=== PATIENT | male | born 1995 | race Caucasian/White ===

== ENCOUNTER 2020-06-29 16:15 | Inpatient (IN) ==
[2020-06-29 16:53] LABS: Appearance Urine Clear (Clear); Bilirubin Urine Negative (Negative); Blood Urine Negative (Negative); Color Urine Yellow; Glucose Urine UA Negative (Negative); Ketones Urine Negative (Negative); Leukocyte Esterase Urine Negative (Negative); Nitrite Urine Negative (Negative); Protein Urine Negative (Negative); Specific Gravity Urine 1.011 (1.000-1.030); Urobilinogen Urine Negative (Negative)
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
[2020-06-29 17:13] LABS: Amphetamines+Metham, Urine Neg (Neg); Barbiturates, Urine Neg (Neg); Benzodiazepine, Urine Neg (Neg); Cocaine, Urine Neg (Neg); MDMA (Ecstacy), Urine Neg (Neg); Methadone, Urine Neg (Neg); Opiate, Urine Neg (Neg); Phencyclidine, Urine Neg (Neg)
[2020-06-29 17:26] LABS: Basophils # (auto) 0.11 K/uL (0-0.2); Eosinophils # (auto) 0.36 K/uL (0-0.5); Eosinophils % (auto) 3.4 %; Hematocrit (blood only) 45.9 % (42-52); Hemoglobin 15.9 g/dL (14.0-18.0); Immature Granulocytes # (auto) 0.05 K/uL (0.00-0.02); Immature Granulocytes % (auto) 0.5 %; Lymphocytes # (auto) 3.66 K/uL (1.2-3.4); Lymphocytes % (auto) 34.1 %; Mean Corpuscular Hemoglobin 30.8 pg (25-34); Mean Corpuscular Hgb Conc 34.6 g/dL (32-36); Mean Corpuscular Volume 88.8 fL (80-100); Mean Platelet Volume 9.7 fL (7.4-10.4); Monocytes % (auto) 7.5 %; Neutrophils # (auto) 5.75 K/uL (1.4-6.5); Neutrophils % (auto) 53.5 %; Platelet Count 260 K/uL (130-400); RDW Coefficient of Variation 12.4 % (11.5-14.5); RDW Standard Deviation 40.1 fL (36.4-46.3); Red Blood Count 5.17 M/uL (4.7-6.1); White Blood Count 10.73 K/uL (4.8-10.8)
[2020-06-29 17:49] LABS: BUN Creatinine Ratio 14.3 (10-20); Calcium 8.8 mg/dl (8.5-10.1); Creatinine Clr Calc Pharmacy 123.3 ml/min; Est GFR (African American) 126.6; Est GFR (Non-African American) 109.3; Potassium 4.2 mmol/L (3.5-5.1)
[2020-06-29 18:00] LABS: Albumin Globulin Ratio 1.3 (0.9-2); Bilirubin,Total 0.4 mg/dl (0.2-1); Globulin 3.1 gm/dl (2.5-4.0); Thyroid Stimulating Hormone 0.858 uIu/ml (0.300-4.500); Total Protein 7.1 gm/dl (6.4-8.2)
[2020-06-29 18:08] LABS: Acetaminophen < 2 ug/ml (10-30); Salicylate 2.9 mg/dl (2.8-20)
[2020-06-29] MEDS ORDERED: MAGNESIUM HYDROXIDE SUSP 30 ML UDC PO PRN ×2 (22:01→22:48)
[2020-06-29] MEDS ORDERED: ACETAMINOPHEN 325 MG TAB PO PRN ×2 (22:01→22:48)
[2020-06-29] MEDS ORDERED: SODIUM CHLORIDE 0.65% NA SOLN 45 ML (OCEAN) PRN ×2 (22:01→22:48)
[2020-06-29] MEDS ORDERED: BISMUTH SUBSALICYLATE PER ML OMNICELL CHARGE PO PRN ×2 (22:01→22:48)
[2020-06-29] MEDS ORDERED: ALUMINUM/MAGNESIUM SUSP 30 ML UDC PO PRN ×2 (22:01→22:48)
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
[2020-06-30] MEDS ORDERED: LURASIDONE HCL 40 MG TAB PO SCH (17:00)
[2020-07-01 09:26] LABS: Glucose Fasting 95 mg/dl (70-99)
[2020-07-01 09:33] LABS: Chol HDL Ratio 6; Cholesterol 199 mg/dl (0-200); HDL Cholesterol 35 mg/dl; LDL Cholesterol Calculated 137 mg/dl; Triglycerides 135 mg/dl (0-150); VLDL Cholesterol 27 mg/dl
--- NOTE | 2020-07-01 11:17 | Psychiatric Progress Note ---
Date of Service July 01, 2020 Impression / Recommendations Impression 25-year-old single male from [place] who lives with his parents, has a history of bipolar type I, alcohol and methamphetamine abuse, and a recent highly lethality suicide attempt by aspirin overdose who was hospitalized at [facility] and discharged without follow-up per his report, and presents here seeking inpatient treatment for worsening mood, suicidal thoughts, and auditory hallucinations including command hallucinations to end his life. He has been able to maintain sobriety for 2 weeks since discharge from the hospital, but has no outpatient services and little support. He is at high risk for suicide if discharged prematurely, and inpatient treatment is medically necessary for his safety. (1) Bipolar 1 disorder: 06/30 -patient reports a long history of bipolar disorder type I, with good response to lurasidone, which was just resumed 2 weeks ago at [facility]. He is tolerating it well, and we will increase it to 60 mg daily with dinner. He does not believe he had fasting labs done at [facility], so will order them for tomorrow for monitoring on an atypical antipsychotic. -Request records from [facility] regarding his recent hospitalization, and attempt to clarify who he was supposed to follow-up with. It sounds as if he may have been referred to their IOP program, but will also need outpatient treatment with a psychiatrist and therapist in the interim. Additionally, he states he has a blended returned case inspector through his [facility]'s ID office, but does not even know who that individual is. -Family meeting with parents/discharge planning. -Encourage group attendance and participation, work on healthy coping skills and discharge safety plan. 07/01 - Continue current medication regimen - though patient does request to move lurasidone dosing to later in the evening due to fatigue. Pt reminded that medication is best absorbed with a snack of at least 350 calories, and felt this was feasible - Continue to explore options for outpatient treatment - Pt is requesting a family meeting with a close friend, Giulia, which was scheduled for tomorrow morning. We encouraged a family meeting with parents, since patient will be returning to live with them. Pt states he has had very productive independent conversations with his parents, and declines a formal meeting. He was at least agreeable with allowing our staff to contact parents to discuss safety recommendations and discuss mitigation of risks related to patient being discharged to their house. - Pt has been participating appropriately with groups (2) Alcohol abuse: 06/30 - Brief intervention was offered and accepted Intervention was greater than 5 min in length. Brief interventions include: 1. Assess Readiness to Quit, 2. Advise: Help Patient to Reduce or Abstain from Alcohol, 3. Agree: Set Specific, Feasible Goals, 4. Assist: Anticipate barriers, Problem-Solving Solutions. Social work to 5. Arrange: Referrals to appropriate treatment. Summary of intervention: The patient is in contemplation stage with regards to transtheoretical model of change. The patient is advised to decrease alcohol consumption due to depressant effects and risk of interactions with prescription medications. The patient agreed to continue to work on sobriety and start going to AA with his friend, Giulia, and will be provided with recovery materials to continue to education self on how to cope with their condition without drinking. -Avoid prescription of controlled substances. History of abusing stimulants. -Recovery protocol. -Refer for outpatient dual diagnosis treatment. 07/01 - Pt started on recovery protocol and has been working through workbook - Pt states he discussed his history substance abuse with a close friend, who is planning to accompany him to AA meetings. 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 Avoid prescription of controlled substances, and encourage substance abuse treatment as above. Risk Factors Assessment Male: Yes : Yes Do You Have Access To A Gun?: No Health Problems: No Mental Health Diagnoses: Yes Substance Use Disorders: Yes Previous Attempt: Yes Previous Attempt; Highly Lethal: Yes Previous Psychiatric Hospitalization: Yes Hopelessness: Yes Smoker: Yes Protective Factors Assessment : No Responsible for Young Children: No Employed: Yes ([employer]) Supportive Family: Yes Good Rapport with Provider: No Interval History Identifying Information KEELEY WILLIAM is a 25-year-old M who currently lives in [place], reports a history of depression versus bipolar disorder and stimulant and alcohol abuse, and was admitted on 06/29/20 22:01 on a 201 voluntary commitment for depressive and psychotic symptoms with a serious suicide attempt by aspirin overdose a couple of weeks ago. Chief Complaint "Um, I'm doing better I think. I'm having a meeting with Giulia tomorrow." Review of Systems Notes Constitutional: denied Cardiovascular: denied Respiratory: denied Gastrointestinal: denied Neurological: denied Psychiatric: denies symptoms other than stated above Total of at least 10 systems reviewed, pertinent positives as above and in HPI. Sleep Information Total Hours of Sleep: 10.0 Sleep Comments: Patient on q15 minute checks Meal Information Percent Meal Consumed - Breakfast: 100 Percent Meal Consumed - Lunch: 100 Percent Meal Consumed - Dinner: 100 Subjective Subjective Patient was seen & assessed and interval progress reviewed with nursing and social work. Staff report the patient has been participating appropriately in group programming. He slept well last evening, and has been completing the re covery protocol workbook in between group sessions. Pt has requested a family meeting with his friend Giulia, which was scheduled for tomorrow morning. Pt was seen today to assess progress since admission. Pt states he is "doing better I think." He states that he was able to speak to his friend as well as his parents yesterday and is planning to have a support meeting with his friend. Reasons for recommended meeting with parents were reviewed - as this would allow opportunity to discuss necessary support related to patient returning to their home on discharge. Pt verbalized understanding of recommendation, but reports "my parents and I talked a lot of stuff out last night. I opened up a lot and it was really good." Pt was at least agreeable with allowing staff to call parents to ensure there are no safety concerns and to review discharge recommendations. Pt shared with this provider that he woke up this morning feeling more hopeful and feels he is ready to begin processing some of the guilt related to the of his childhood friend 10 years ago. Pt states "we were super close, he was like my little brother - and I couldn't protect him." Pt states that he feels like he is "still failing" this friend by "not being able to protect our other friend, who is struggling a lot with alcohol." Pt is able to verbalize that his goal needs to be to focus on himself, and he has been processing ways to do this. Pt states "I realized I need to find a new purpose. I need outpatient treatment and I would really like to find a job in a gym. That's where I feel the happiest." Pt states that his meeting tomorrow will be with a close friend, who has already reported she will attend regular AA meetings with the patient and offer support. Pt is also proud to announce that he has secured an AA sponsor. Pt denied ongoing SI or auditory hallucinations today. He denied additional needs or concerns at this time. Physical Exam Psychiatric Orientation: alert, oriented x 3 and cooperative Apperance: appropriately dressed (casually, in jeans and a t-shirt), appr opriately groomed and appeared stated age Eye Contact: good eye contact Motor Behavior: steady gait and station and no abnormal motor movements Speech: normal rate/rhythm/volume of speech Affect: + blunted affect (appearing somewhat subdued, but not overtly depressed) Mood: + depressed mood (but admits to overall improvement since admission) Thought Process: goal directed thought process, clear/coherent thought process and thought association intact Thought Content: reality based without delusions and + guilt (admits to still processing guilt related to of childhood friend); no hopelessness Suicidal Thoughts: denies suicidal thoughts and denies suicidal intent Homicidal Thoughts: denies homicidal thoughts Hallucinations: no auditory hallucinations and no visual hallucinations Cognition: recent memory grossly intact, attention grossly intact and language grossly intact Estimated Intelligence: consistent with education level Insight: + fair insight Judgement: + fair judgement Vital Signs (Past 24 Hours) Last Vital Signs Temp 36.5 C 07/01/20 06:52 Pulse 64 07/01/20 06:53 Resp 18 07/01/20 06:52 BP 144/80 H 07/01/20 06:53 Pulse Ox 97 06/29/20 22:26 Results & Data ([facility]) Laboratory Results Laboratory Results - last 24 hr 07/01/20 07:46 Fasting Glucose 95 Triglycerides 135 Cholesterol 199 LDL Cholesterol, Calc 137 VLDL Cholesterol, Calc 27 HDL Cholesterol 35 Cholesterol/HDL Ratio 6 Current Inpatient Medications Current Inpatient Medications: Current Inpatient Medications Acetaminophen (Acetaminophen 325 Mg Tab) 650 mg PO Q4H PRN PRN Reason: Headache or Minor Fever Stop: 07/29/20 22:00 Al Hydrox/Mg Hydrox/Simethicone (Aluminum/Magnesium Susp 30 Ml Udc) 30 ml PO Q4H PRN PRN Reason: GI Upset Stop: 07/29/20 22:00 Bismuth Subsalicylate (Bismuth Subsalicylate Per Ml Omnicell Charge) 15 ml PO PRN PRN PRN Reason: Loose Stool Stop: 07/29/20 22:00 Hydroxyzine HCl (Hydroxyzine Hcl 25 Mg Tab) 50 mg PO HSZ PRN PRN Reason: Insomnia Stop: 07/29/20 22:00 Hydroxyzine HCl (Hydroxyzine Hcl 25 Mg Tab) 25 mg PO Q4H PRN PRN Reason: Anxiety Stop: 07/29/20 22:00 Lurasidone HCl (Lurasidone Hcl 40 Mg Tab) 60 mg PO DAILY@1930 MARIBEL Stop: 07/31/20 19:29 Magnesium Hydroxide (Magnesium Hydroxide Susp 30 Ml Udc) 30 ml PO DAILY PRN PRN Reason: Constipation Stop: 07/29/20 22:00 Nicotine Polacrilex (Nicotine Polacrilex 2 Mg Gum) 1 piece MT Q1H PRN PRN Reason: nicotine cravings Stop: 07/31/20 10:17 Sodium Chloride (Sodium Chloride 0.65% Na Soln 45 Ml ([place])) 1 - 2 sprays NA PRN PRN PRN Reason: Nasal Dryness/Congestion Stop: 07/29/20 22:00 Mental Health & Subst Abuse Tx Therapist Name of Therapist: None Transportation Driver Name of Transportation Driver: [facility] IRENE Dinh Phone Number for Transportation Driver: Post Discharge Appointments Other #1: Name of Aftercare Appointment: Alfonso ADAM Phone Number of Aftercare Appointment: [phone] Time of Aftercare Appointment: On waitlist - approximately 1 month wait Aftercare Appointment Comment: Will call you to schedule intake Contact Information Discharge Discharge Address: [address] [place] [address]
[2020-07-01] MEDS: NICOTINE POLACRILEX 2 MG GUM MT PRN ×2 (11:24→14:39)
[2020-07-01] MEDS ORDERED: LURASIDONE HCL 40 MG TAB PO SCH (19:30)
--- NOTE | 2020-07-02 11:28 | Psychiatric Progress Note ---
Date of Service July 02, 2020 Impression / Recommendations Impression 25-year-old single male from [place] who lives with his parents, has a history of bipolar type I, alcohol and methamphetamine abuse, and a recent highly lethality suicide attempt by aspirin overdose who was hospitalized at [facility] and discharged without follow-up per his report, and presents here seeking inpatient treatment for worsening mood, suicidal thoughts, and auditory hallucinations including command hallucinations to end his life. He has been able to maintain sobriety for 2 weeks since discharge from the hospital, but has no outpatient services and little support. He is at high risk for suicide if discharged prematurely, and inpatient treatment is medically necessary for his safety. (1) Bipolar 1 disorder: 06/30 -patient reports a long history of bipolar disorder type I, with good response to lurasidone, which was just resumed 2 weeks ago at [facility]. He is tolerating it well, and we will increase it to 60 mg daily with dinner. He does not believe he had fasting labs done at [facility], so will order them for tomorrow for monitoring on an atypical antipsychotic. -Request records from [facility] regarding his recent hospitalization, and attempt to clarify who he was supposed to follow-up with. It sounds as if he may have been referred to their IOP program, but will also need outpatient treatment with a psychiatrist and therapist in the interim. Additionally, he states he has a blended pillowcase maker [facility], but does not even know who that individual is. -Family meeting with parents/discharge planning. -Encourage group attendance and participation, work on healthy coping skills and discharge safety plan. 07/01 - Continue current medication regimen - though patient does request to move lurasidone dosing to later in the evening due to fatigue. Pt reminded that medication is best absorbed with a snack of at least 350 calories, and felt this was feasible - Continue to explore options for outpatient treatment - Pt is requesting a family meeting with a close friend, Giulia, which was scheduled for tomorrow morning. We encouraged a family meeting with parents, since patient will be returning to live with them. Pt states he has had very productive independent conversations with his parents, and declines a formal meeting. He was at least agreeable with allowing our staff to contact parents to discuss safety recommendations and discuss mitigation of risks related to patient being discharged to their house. - Pt has been participating appropriately with groups (2) Alcohol abuse: 06/30 - Brief intervention was offered and accepted Intervention was greater than 5 min in length. Brief interventions include: 1. Assess Readiness to Quit, 2. Advise: Help Patient to Reduce or Abstain from Alcohol, 3. Agree: Set Specific, Feasible Goals, 4. Assist: Anticipate barriers, Problem-Solving Solutions. Social work to 5. Arrange: Referrals to appropriate treatment. Summary of intervention: The patient is in contemplation stage with regards to transtheoretical model of change. The patient is advised to decrease alcohol consumption due to depressant effects and risk of interactions with prescription medications. The patient agreed to continue to work on sobriety and start going to AA with his friend, Giulia, and will be provided with recovery materials to continue to education self on how to cope with their condition without drinking. -Avoid prescription of controlled substances. History of abusing stimulants. -Recovery protocol. -Refer for outpatient dual diagnosis treatment. 07/01 - Pt started on recovery protocol and has been working through workbook - Pt states he discussed his history substance abuse with a close friend, who is planning to accompany him to AA meetings. 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 Avoid prescription of controlled substances, and encourage substance abuse treatment as above. Risk Factors Assessment Male: Yes : Yes Do You Have Access To A Gun?: No Health Problems: No Mental Health Diagnoses: Yes Substance Use Disorders: Yes Previous Attempt: Yes Previous Attempt; Highly Lethal: Yes Previous Psychiatric Hospitalization: Yes Hopelessness: Yes Smoker: Yes Protective Factors Assessment : No Responsible for Young Children: No Employed: Yes ([employer]) Supportive Family: Yes Good Rapport with Provider: No Interval History Identifying Information KEELEY WILLIAM is a 25-year-old M who currently lives in [place], reports a history of depression versus bipolar disorder and stimulant and alcohol abuse, and was admitted on 06/29/20 22:01 on a 201 voluntary commitment for depressive and psychotic symptoms with a serious suicide attempt by aspirin overdose a couple of weeks ago. Chief Complaint "Depression -- and making bad decisions". Review of Systems Sleep Information Total Hours of Sleep: 7 Sleep Comments: pt on q-15 minute checks Meal Information Percent Meal Consumed - Breakfast: 100 Percent Meal Consumed - Lunch: 100 Percent Meal Consumed - Dinner: 100 Subjective Subjective Patient was seen & assessed and interval progress reviewed with treatment team. I met individually with the patient in order to assess his current mental status, evaluate his response to treatment, make any necessary changes in the patient's treatment regimen and coordination with the patient, and address any issues or questions that may arise. The patient tells me that he is continuing to feel better, and notes that he believes that the increase in his dose of Latuda from 40 mg a day to 60 mg a day has been helpful. He also notes that he has been working on a number of issues in individual, and group and activity therapies. These issues primarily have to do with his ongoing feelings regarding various losses that she is experienced, and what he has learned is his tendency to imagine that he somehow has the power to save other people from their own poorly conceived decisions. We reviewed the circumstances that led to the admission. The patient reports that 2 weeks ago he took what he refers to as a "massive" overdose of aspirin. He indicates that they aspirin tablets were 325 mg tablets and that he took roughly 30,000 mg by swallowing a handful after handful with water. He then became frightened, called for help, was taken to [facility], stabilized medically, psychiatrically hospitalized for several days, and then discharged back to the community. At discharge, he was told that he would be receiving a call from the community mental health social worker at the [facility] intensive up patient treatment program, and he was discharged with a supply of Latuda, but then was not contacted by [facility] outpatient treatment. He was aware that his ongoing depression continued. He also acknowledges that complicating the clinical picture is a history of alcohol dependence, and he identifies himself as a "recovering alcoholic," although his current duration of sobriety is approximately 2 weeks. He says that when he is drinking he typically drinks "3 or 4 fifths [of distilled spirits] over the course of a week, and there have been times when drinking with a friend he has consumed an entire fifth of distilled spirits and a single setting. The patient also tells me that he sometimes uses "marijuana" recreationally." The record indicates that he has a history of methamphetamine, but the patient did not acknowledge that with me today. Physical Exam Vital Signs (Past 24 Hours) Last Vital Signs Temp 36.8 C 07/02/20 06:33 Pulse 54 L 07/02/20 06:34 Resp 18 07/02/20 06:33 BP 111/71 07/02/20 06:34 Pulse Ox 97 06/29/20 22:26 Results & Data ([facility]) Current Inpatient Medications Current Inpatient Medications: Current Inpatient Medications Acetaminophen (Acetaminophen 325 Mg Tab) 650 mg PO Q4H PRN PRN Reason: Headache or Minor Fever Stop: 07/29/20 22:00 Al Hydrox/Mg Hydrox/Simethicone (Aluminum/Magnesium Susp 30 Ml Udc) 30 ml PO Q4H PRN PRN Reason: GI Upset Stop: 07/29/20 22:00 Bismuth Subsalicylate (Bismuth Subsalicylate Per Ml Omnicell Charge) 15 ml PO PRN PRN PRN Reason: Loose Stool Stop: 07/29/20 22:00 Hydroxyzine HCl (Hydroxyzine Hcl 25 Mg Tab) 50 mg PO HSZ PRN PRN Reason: Insomnia Stop: 07/29/20 22:00 Hydroxyzine HCl (Hydroxyzine Hcl 25 Mg Tab) 25 mg PO Q4H PRN PRN Reason: Anxiety Stop: 07/29/20 22:00 Lurasidone HCl (Lurasidone Hcl 40 Mg Tab) 60 mg PO DAILY@1930 MARIBEL Stop: 07/31/20 19:29 Last Admin: 07/01/20 19:28 Dose: 60 mg Documented by: Magnesium Hydroxide (Magnesium Hydroxide Susp 30 Ml Udc) 30 ml PO DAILY PRN PRN Reason: Constipation Stop: 07/29/20 22:00 Nicotine Polacrilex (Nicotine Polacrilex 2 Mg Gum) 1 piece MT Q1H PRN PRN Reason: nicotine cravings Stop: 07/31/20 10:17 Last Admin: 07/01/20 14:39 Dose: 1 piece Documented by: Sodium Chloride (Sodium Chloride 0.65% Na Soln 45 Ml ([place])) 1 - 2 sprays NA PRN PRN PRN Reason: Nasal Dryness/Congestion Stop: 07/29/20 22:00 Mental Health & Subst Abuse Tx Psychiatrist [facility] Psychiatrist's Psychiatric Appointment Comment: [address] [place] [address] Therapist Name of Therapist: SHELIA ADAM Therapist's Therapy Appointment Comment: [address] [place] [facility] [place] [address] Box Sealing Machine Catcher Name of Box Sealing Machine Catcher: [facility] IRENE Dinh Phone Number for Box Sealing Machine Catcher: Date of Appointment with Box Sealing Machine Catcher: 06/30/20 Time of Appointment with Box Sealing Machine Catcher: 12:30 p.m. Case Management Appointment Comment: Will meet you at your house (outside) Post Discharge Appointments Contact Information Discharge Discharge Address: [address] [place] [address]
--- NOTE | 2020-07-02 13:02 | Discharge Summary ---
Date of Service July 02, 2020 History of Present Illness Patient presented to our emergency room yesterday, after he presented at [facility] for inpatient treatment, and they sent him to our ER as they had no beds. He reported depressed mood with suicidal thoughts, and said he attempted to end his life on 06/13/2020 by overdosing on 74,000 mg of aspirin. He was in the ICU at [facility] in [place], and then transferred to their inpatient psychiatric unit for 4 days, and said he was discharged on Latuda but without outpatient follow-up. He endorsed auditory hallucinations of voices (a crowd of people talking, calling his name, and a voice telling him to "do it," referring to killing himself). He denied legal problems, homicidal thoughts, aggression, and self-injurious behavior. He said he was having difficulty focusing at work, and reports a history of stimulant and alcohol abuse but had been sober for 16 days. He was unable to contract for safety outside of the hospital, stating that if he went home, he feared he would drink alcohol and then end his life. He reports urges to drink, stating that a few days ago he got out a fifth of vodka, but stopped himself before he took a drink. Admission labs: CBC, CMP, TSH, and UA all normal. UDS negative. He signed in voluntarily for treatment. On my assessment today, he reports he is struggled with mood symptoms since age 12. He had done well on Latuda for a time, but has not been stable for about a year, had been drinking daily up until 2 weeks ago, and mood was worsening in the context of multiple stressors. He reports that the area he lives in is drug and gang ridden, with frequent shootings, and that he has multiple friends using "hard drugs," and has "pulled guns out of friends' mouth multiple times." He was in an off-and-on relationship with a female but found out at the end of May that she was cheating on him. He overdosed impulsively to end his life, and although he says he regrets the overdose and it was "selfish," he is fearful that he would again try to harm himself as he feels unstable, hopeless, and ov erwhelmed. He has urges to drink, and does not feel able to maintain sobriety with his current mood symptoms. He feels unable to function or work due to low mood, irritability, hopelessness, and poor focus. He reports a history of episodes where he does not sleep for up to 4 days, feels hyper, distractible, and irritable, "then I crash and get very depressed." He describes his mood is "useless, feel like I'm a disappointment, not good enough for anything." He reports increased anxiety over the past few weeks, as a result of worsening mood. He reports auditory hallucinations of voices that have occurred over the past few weeks, and has never experienced these or other psychotic symptoms before. He says Latuda has been helpful in the past, "I feel more like me." He has been on higher doses in the past, but it was just restarted at [facility] as he had not been taking it while drinking heavily. His goals of treatment are to adjust his medication, get outpatient treatment, and work on coping skills. He states that [facility] discharged him without any follow-up, and that he was supposed to be contacted about a program (?IOP), but has never heard from them. Physical Exam Psychiatric Orientation: alert, oriented x 3 and cooperative Apperance: appropriately dressed, appropriately groomed and appeared stated age Eye Contact: good eye contact Motor Behavior: steady gait and station Speech: normal rate/rhythm/volume of speech Affect: euthymic affect "Much better." Thought Process: goal directed thought process and linear/logical thought process Thought Content: reality based without delusions Suicidal Thoughts: denies suicidal thoughts and denies suicidal plan Homicidal Thoughts: denies homicidal thoughts and denies homicidal plan Hallucinations: no auditory hallucinations and no visual hallucinations Cognition: recent memory grossly intact, remote memory grossly intact, attention grossly intact and language grossly intact Estimated Intelligence: + above average estimated intelligence Insight: + fair insight Judgement: good judgement Vital Signs (Past 24 Hours) Last Vital Signs Temp 36.8 C 07/02/20 06:33 Pulse 54 L 07/02/20 06:34 Resp 18 07/02/20 06:33 BP 111/71 07/02/20 06:34 Pulse Ox 97 06/29/20 22:26 Principal Diagnosis Bipolar Disorder Psychiatric Data During the course of hospitalization the patient was offered various modalities of psychiatric treatment and education. These included individual, group, recreational, and family interventions. He also was provided with psychiatric chemotherapy. Specifically, his dose of Latuda was titrated to 40 mg a day, the patient reported that his response was favorable. As part of his discharge assessment the patient reconfirmed that he is continuing to feel "a lot better," and notes that he believes that the increase in his dose of Latuda from 40 mg a day to 60 mg a day has been helpful. He also notes that he has been working on a number of issues in individual, and group and activity therapies. These issues primarily have to do with his ongoing feelings regarding various losses that she is experienced, and what he has learned is his tendency to imagine that he somehow has the power to save other people from their own poorly conceived decisions. We reviewed the circumstances that led to the admission. The patient reports that 2 weeks ago he took what he refers to as a "massive" overdose of aspirin. He indicates that they aspirin tablets were 325 mg tablets and that he took roughly 30,000 mg by swallowing a handful after handful with water. He then became frightened, called for help, was taken to [facility], stabilized medically, psychiatrically hospitalized for several days, and then discharged back to the community. At discharge, he was told that he would be receiving a call from the material worker at the [facility] intensive up patient treatment program, and he was discharged with a supply of Latuda, but then was not contacted by [facility] outpatient treatment. He was aware that his ongoing depression continued. He also acknowledges that complicating the clinical picture is a history of alcohol dependence, and he identifies himself as a "recovering alcoholic," although his current duration of sobriety is approximately 2 weeks. He says that when he is drinking he typically drinks "3 or 4 fifths [of distilled spirits] over the course of a week, and there have been times when drinking with a friend he has consumed an entire fifth of distilled spirits and a single setting. The patient also tells me that he sometimes uses "marijuana" recreationally." Patient was advised against using nonprescribed drugs, including drugs of abuse and alcohol, while undergoing treatment for a mood disorder. Day of Discharge Assessment At the time of his discharge assessment on the day of discharge the patient was found to be pleasant, cooperative, and appropriately dressed and groomed. His speech was delivered at a normal rate, rhythm, and volume. In addition, he spoke spontaneously and fluently. The patient's thought processes demonstrated tight associations. His thought content was devoid of any psychotic features. Specifically, there is no evidence of delusional material in the patient's thought content. In addition, he reports that he has not experienced any perceptual disturbances such as auditory or visual hallucinations. Patient reports that he is not experiencing any thoughts of suicide, and indicates that admission he did not have an actual plan for suicide, nor did he have suicidal intent. However, he was aware that his mood alterations were persisting and he sought treatment because he was concerned by the persistent depression, within the context of a suicide attempt approximately 2 weeks ago. Within this context, the patient is conversant with a plan for safety in the community. We have made arrangements for him to enter an intensive outpatient treatment program, and the patient notes that attending his treatment faithfully and consistently as part of his safety plan. He also plans to return to alcoholics anonymous and is looking for a sponsor. He agreed that, at least at first (at least for the first 2 months,, he should attend AA meetings daily. He also plans to avoid spending time with friends who he knows will not be sober supports. He will advise his family or his outpatient providers if suicidal thoughts return and he says that he is aware that he can also come independently to the local emergency room. The patient reports that he has no thoughts of causing physical harm to the person or property of others. Currently, his judgment seems to be good. His insight is fair. Transition of Care Transition Of Care Record: was reviewed with the patient Advance Directives Advance Directives Information Provided: Yes Advance Directives: No Mental Health Advance Directive: No Advance Directives on File: No Living Will: No Power of Asphalt Tamper: No Advance Directives Reason:: Declines as Mental Health Visit. Risk Factors Assessment History of suicide attempt. History of mental illness. History of drug/alcohol abuse. Mitigating factors include supportive family and motivation to treatment and recovery. Male: Yes : Yes Do You Have Access To A Gun?: No Health Problems: No Mental Health Diagnoses: Yes Substance Use Disorders: Yes Previous Attempt: Yes Previous Attempt; Highly Lethal: Yes Previous Attempt; Planned: Yes Previous Attempt; Didn't Tell Anyone: No Family History of Suicide: No Previous Psychiatric Hospitalization: Yes Hopelessness: Yes Smoker: Yes Protective Factors Assessment Jehovah'S Witness Beliefs: Yes : No Responsible for Young Children: No Employed: Yes ([employer]) Stable Relationships: Yes Supportive Family: Yes Good Rapport with Provider: No Absence of Any Risk Factors Above: No Tobacco Cessation at Discharge Tobacco Cessation Medication Prescribed at Discharge: Offered & Prescribed Practical counseling provided including: recognizing danger situations, developing coping skills and providing basic information about quitting Tobacco Cessation Outpatient Followup: Referral for outpatient treatment offered and refused Antipsychotic Medications Lurasidone. Prescribed as a mood stabilizer. Total Time Total Time Spent: Greater Than 30 Minutes Total Time Includes: Examination of the patient, Discharge Planning, Medication Reconciliation and Communication with other providers Discharge Data Lab Results 06/29/20 06/29/20 06/29/20 16:45 16:45 17:09 WBC 10.73 RBC 5.17 Hgb 15.9 Hct 45.9 MCV 88.8 MCH 30.8 MCHC 34.6 RDW Std Deviation 40.1 RDW Coeff of Nayely 12.4 Plt Count 260 MPV 9.7 Immature Gran % (Auto) 0.5 Neut % (Auto) 53.5 Lymph % (Auto) 34.1 Burke % (Auto) 7.5 Eos % (Auto) 3.4 Baso % (Auto) 1.0 Neut # (Auto) 5.75 Lymph # (Auto) 3.66 H Burke # (Auto) 0.80 H Eos # (Auto) 0.36 Baso # (Auto) 0.11 Immature Gran # (Auto) 0.05 H Sodium Potassium Chloride Carbon Dioxide Anion Gap BUN Creatinine Est Cr Clr Drug Dosing Est GFR ( Amer) Est GFR (Non-Af Amer) BUN/Creatinine Ratio Glucose Fasting Glucose Calcium Total Bilirubin AST ALT Alkaline Phosphatase Total Protein Albumin Globulin Albumin/Globulin Ratio Triglycerides Cholesterol LDL Cholesterol, Calc VLDL Cholesterol, Calc HDL Cholesterol Cholesterol/HDL Ratio TSH Urine Color Yellow Urine Appearance Clear Urine pH 5.0 Ur Specific Bethany 1.011 Urine Protein Negative Urine Glucose (UA) Negative Urine Ketones Negative Urine Blood Negative Urine Nitrite Negative Urine Bilirubin Negative Urine Urobilinogen Negative Ur Leukocyte Esterase Negative Salicylates Urine Opiates Screen Neg Ur Methadone, Qual Neg Acetaminophen Urine Barbiturates Neg Ur Phencyclidine (PCP) Neg U Amphetamin/Meth Scrn Neg MDMA (Ecstasy) Screen Neg U Benzodiazepines Scrn Neg Ur Cocaine Metabolite Neg U Marijuana (THC) Screen Neg Ethyl Alcohol mg/dL 06/29/20 06/29/20 06/29/20 17:09 17:09 17:09 WBC RBC Hgb Hct MCV MCH MCHC RDW Std Deviation RDW Coeff of Nayely Plt Count MPV Immature Gran % (Auto) Neut % (Auto) Lymph % (Auto) Burke % (Auto) Eos % (Auto) Baso % (Auto) Neut # (Auto) Lymph # (Auto) Burke # (Auto) Eos # (Auto) Baso # (Auto) Immature Gran # (Auto) Sodium 139 Potassium 4.2 Chloride 108 H Carbon Dioxide 26 Anion Gap 5.0 BUN 14 Creatinine 0.95 Est Cr Clr Drug Dosing 123.3 Est GFR ( Amer) 126.6 Est GFR (Non-Af Amer) 109.3 BUN/Creatinine Ratio 14.3 Glucose 87 Fasting Glucose Calcium 8.8 Total Bilirubin 0.4 AST 16 ALT 38 Alkaline Phosphatase 64 Total Protein 7.1 Albumin 4.0 Globulin 3.1 Albumin/Globulin Ratio 1.3 Triglycerides Cholesterol LDL Cholesterol, Calc VLDL Cholesterol, Calc HDL Cholesterol Cholesterol/HDL Ratio TSH 0.858 Urine Color Urine Appearance Urine pH Ur Specific Bethany Urine Protein Urine Glucose (UA) Urine Ketones Urine Blood Urine Nitrite Urine Bilirubin Urine Urobilinogen Ur Leukocyte Esterase Salicylates 2.9 Urine Opiates Screen Ur Methadone, Qual Acetaminophen < 2 L Urine Barbiturates Ur Phencyclidine (PCP) U Amphetamin/Meth Scrn MDMA (Ecstasy) Screen U Benzodiazepines Scrn Ur Cocaine Metabolite U Marijuana (THC) Screen Ethyl Alcohol mg/dL < 3.0 07/01/20 07:46 WBC RBC Hgb Hct MCV MCH MCHC RDW Std Deviation RDW Coeff of Nayely Plt Count MPV Immature Gran % (Auto) Neut % (Auto) Lymph % (Auto) Burke % (Auto) Eos % (Auto) Baso % (Auto) Neut # (Auto) Lymph # (Auto) Burke # (Auto) Eos # (Auto) Baso # (Auto) Immature Gran # (Auto) Sodium Potassium Chloride Carbon Dioxide Anion Gap BUN Creatinine Est Cr Clr Drug Dosing Est GFR ( Amer) Est GFR (Non-Af Amer) BUN/Creatinine Ratio Glucose Fasting Glucose 95 Calcium Total Bilirubin AST ALT Alkaline Phosphatase Total Protein Albumin Globulin Albumin/Globulin Ratio Triglycerides 135 Cholesterol 199 LDL Cholesterol, Calc 137 VLDL Cholesterol, Calc 27 HDL Cholesterol 35 Cholesterol/HDL Ratio 6 TSH Urine Color Urine Appearance Urine pH Ur Specific Bethany Urine Protein Urine Glucose (UA) Urine Ketones Urine Blood Urine Nitrite Urine Bilirubin Urine Urobilinogen Ur Leukocyte Esterase Salicylates Urine Opiates Screen Ur Methadone, Qual Acetaminophen Urine Barbiturates Ur Phencyclidine (PCP) U Amphetamin/Meth Scrn MDMA (Ecstasy) Screen U Benzodiazepines Scrn Ur Cocaine Metabolite U Marijuana (THC) Screen Ethyl Alcohol mg/dL Hospital Course (1) Bipolar 1 disorder: 06/30 -patient reports a long history of bipolar disorder type I, with good response to lurasidone, which was just resumed 2 weeks ago at [facility]. He is tolerating it well, and we will increase it to 60 mg daily with dinner. He does not believe he had fasting labs done at [facility], so will order them for tomorrow for monitoring on an atypical antipsychotic. -Request records from [facility] regarding his recent hospitalization, and attempt to clarify who he was supposed to follow-up with. It sounds as if he may have been referred to their IOP program, but will also need outpatient treatment with a psychiatrist and therapist in the interim. Additionally, he states he has a blended case operator through his [facility] ID office, but does not even know who that individual is. -Family meeting with parents/discharge planning. -Encourage group attendance and participation, work on healthy coping skills and discharge safety plan. 07/01 - Continue current medication regimen - though patient does request to move lurasidone dosing to later in the evening due to fatigue. Pt reminded that medication is best absorbed with a snack of at least 350 calories, and felt this was feasible - Continue to explore options for outpatient treatment - Pt is requesting a family meeting with a close friend, Giulia, which was scheduled for tomorrow morning. We encouraged a family meeting with parents, since patient will be returning to live with them. Pt states he has had very productive independent conversations with his parents, and declines a formal meeting. He was at least agreeable with allowing our staff to contact parents to discuss safety recommendations and discuss mitigation of risks related to patient being discharged to their house. - Pt has been participating appropriately with groups 07/02 -The patient continues to report that he is feeling much better. His affect is fairly bright, and he describes his mood as "8 or 9 out of 10." -He reports that he is tolerating the increased dose of lurasidone well and feels that it is helping his mood. -The patient has been consistently reporting that he is not having thoughts of suicide and has developed a reasonable plan for community safety. -Arrangements have been made for the patient to have an intake appointment for intensive outpatient psychiatric treatment. -The plan is to discharge the patient to the community for further care and treatment on an outpatient basis. (2) Alcohol abuse: 06/30 - Brief intervention was offered and accepted Intervention was greater than 5 min in length. Brief interventions include: 1. Assess Readiness to Quit, 2. Advise: Help Patient to Reduce or Abstain from Alcohol, 3. Agree: Set Specific, Feasible Goals, 4. Assist: Anticipate barriers, Problem-Solving Solutions. Social work to 5. Arrange: Referrals to appropriate treatment. Summary of intervention: The patient is in contemplation stage with regards to transtheoretical model of change. The patient is advised to decrease alcohol consumption due to depressant effects and risk of interactions with prescription medications. The patient agreed to continue to work on sobriety and start going to AA with his friend, Giulia, and will be provided with recovery materials to continue to education self on how to cope with their condition without drinking. -Avoid prescription of controlled substances. History of abusing stimulants. -Recovery protocol. -Refer for outpatient dual diagnosis treatment. 07/01 - Pt started on recovery protocol and has been working through workbook - Pt states he discussed his history substance abuse with a close friend, who is planning to accompany him to AA meetings. Pt states he has secured a sponsor and is hopeful to continue outpatient treatment as well as limit contact with individuals who have not historically been supportive of his recovery 07/02 -The patient was again educated about the risks of using mood altering chemical substances, including alcohol, while undergoing treatment for a mood disorder. He was advised that alcohol is a depressant, can interfere with sustained sleep (1 of his problems prior to admission), and can impair impulse control and judgment. -He is being encouraged to attend AA meetings 7 days a week (if available) and pursue his goal of attending AA meetings with his friend, and, also, finding a sponsor. 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 Avoid prescription of controlled substances, and encourage substance abuse treatment as above. 07/02 -the patient continues to report that he has not abused any chemical substance other than alcohol and, at times, marijuana. We advised him not to use any nonprescribed medication while undergoing treatment for his mood disorder. Mental Health & Subst Abuse Tx Psychiatrist Name of Psychiatrist: [facility] Psychiatrist's Date of Appointment with Psychiatrist: 07/05/20 Time of Appointment with Psychiatrist: 9:30am Psychiatric Appointment Comment: [address] [id number] Therapist Name of Therapist: [facility] Therapist's Therapy Appointment Comment: [address] [place] [address] Electrical Project Engineer Name of Electrical Project Engineer: Calloway Joanne Dinh Phone Number for Electrical Project Engineer: Date of Appointment with Electrical Project Engineer: 06/30/20 Time of Appointment with Electrical Project Engineer: 12:30 p.m. Case Management Appointment Comment: Will meet you at your house (outside) Post Discharge Appointments Smoking Cessation Counseling Tobacco Cessation Medication Prescribed at Discharge: Offered & Prescribed Contact Information Discharge Discharge Address: [address] [place] [address] Discharge Plan Discharge Items Patient Disposition: Home - Self-Care Reason For Visit: MDD R/O BIPOLAR Discharge Diagnosis: Bipolar disorder, NOS Activity: Resume your previous activity Non-emergency contact: Psychiatrist and Therapist Call non-emergency contact if: you have any medication questions and your symptoms worsen Follow-up/Referrals: PCP,NO [Primary Care Provider] - Diet: Regular Addtl Attending Provider Instructions: SPECIAL CARE INSTRUCTIONS: 1. Follow through with your scheduled aftercare appointments. If unable to keep an appointment, please call to reschedule. 2. Take your medication only as prescribed. Medication should not be changed or stopped without the approval of your doctor. In the event of worsening symptoms or concerns about side effects, contact your doctor immediately. 3. Utilize new healthy coping skills, anger management skills, and stress management skills learned during your hospitalization. Journal feelings and process them with a support person. Identify stressors or situations that may result in relapse, deterioration or inappropriate behaviors and develop a p manfred to deal with those issues. 4. If your coping skills are ineffective and you are in crisis, contact your outpatient providers for direction. If unable to reach your providers, please call the [facility] CRISIS LINE AT , go to the [facility] walk-in center at [address], [address], [place], or go to the closest Emergency Room. 5. Avoid alcohol and un-prescribed drugs. 6. You have been provided with the Mental Health Advance Directives Pamphlet for your review. AFTERCARE APPOINTMENTS: * Please call your insurance company prior to your scheduled appointment to confirm your aftercare providers are covered. Take your insurance information to your appointments. WHO TO CALL AND WHEN: Medical Emergencies: For questions or emergencies related to your hospital stay, please contact the Inpatient Behavioral Health Unit at [phone]. A wall steamer is on-call 07/05 for the Behavioral Health Unit for emergencies At any time you feel your situation is an emergency, you may also call 911 immediately. Pending Studies at Discharge: No Stand-Alone Forms: My [facility] Image[employer]pike, Smoking Cessation, Suicide Prevention Resources Medications and DC Order Prescriptions: New nicotine (polacrilex) [Nicorelief] 2 mg Gum 1 piece of gum MT Q1H PRN (Reason: Nicotine Cravings) Qty: 110 RF: 0 lurasidone 60 mg tablet 60 mg PO DAILY Qty: 30 RF: 0 Discontinued Latuda 40 mg Tablet 40 mg PO PM RF: 0 Discharge Orders: Discharge Order (Routine); Ordered 07/02/20 Ordered By: David Zimmerman/Other Patient Handouts: Alcohol Addiction, Addiction Recovery Counseling, Treating Bipolar Disorder, Understanding Methamphetamine ... Admission Data Admit Date/Time: 06/29/20 22:01 Attending Provider: Daja Yang Admit Provider: Daja Yang Primary Care Provider: PCP,NO Other Interventions: Discharge Summary Assessment (RN) Last Done: 07/02/20 13:51 PSY Interdisciplinary Discharge Planning Last Done: 07/02/20 13:49 C[place] [address] D/C day mgmt > 30 min Patient Type Established History Expanded Problem Focused Exam Expanded Problem Focused Medical Decision Making Moderate Complexity Diagnoses Bipolar 1 disorder F31.9 Alcohol abuse F10.10 Methamphetamine abuse F15.10 Time Spent (min) 75
== END 2020-07-02 14:45 | disposition home or self-care (01) | DRG 885 ==
LOC: ED 16:15 → 3S 21:58